=== PATIENT | male | born 1935 | race Caucasian/White ===

== ENCOUNTER 2017-12-09 08:32 | Outpatient (CLI) | payer MEDICARE, BC ==
--- NOTE | 2017-12-09 14:04 | NM ---
NUCLEAR MEDICINE BRAIN IMAGING: HISTORY: Resting tremor and bradykinesia. TECHNIQUE: A BRANDY scan with axial tomographic images of the brain was obtained three hours following the intraven ous administration of 4.7 millicuries of 4.7 millicuries of iodine-123 Ioflupane. The patient was pr e-treated with 130 mg of potassium iodide orally one hour prior to the injection. FINDINGS: There is normal symmetric uptake in the striata bilaterally, demonstrating symmetric crescent-shaped focal regions of activity mirrored about the median plane. IMPRESSION: Normal exam. POS: [facility]
== END 2017-12-09 08:33 | disposition home or self-care (01) ==
LOC: NM 08:32
PROVIDERS: ATTEND Student in an Organized Health Care Education/Training Program
DX: R25.1 Tremor, unspecified (principal); R25.8 Other abnormal involuntary movements
CPT/HCPCS: 78607; A9584